=== PATIENT | male | born 1985 | race Hispanic/Latino ===

== ENCOUNTER 2016-07-18 12:53 | Emergency (ER) | payer OTHER ==
[~2016-07-18] VITALS: Ht 177.8 cm; Wt 78.5 kg
--- NOTE | 2016-07-18 13:11 | ED HAND/WRIST INJURY COMPLAINT ---
History of Present Illness General Chief Complaint: Hand or Wrist Injury Stated Complaint: ? INFECTION LFT FINGER Source: patient, family (BROTHER) Exam Limitations: no limitations Vital Signs & Intake/Output Vital Signs & Intake/Output Vital Signs Date Time Temp Pulse Resp B/P Pulse O2 O2 Flow FiO2 Ox Delivery Rate 07/18 1431 98.6 85 18 126/85 98 Room Air 07/18 1315 Room Air Room Air 07/18 1304 99.0 78 20 161/104 97 Room Air Allergies Coded Allergies: benzocaine (From ANBESOL) (Intermediate, HIVES 07/18/16) phenol (From ANBESOL) (Intermediate, HIVES 07/18/16) povidone-iodine (From ANBESOL) (Intermediate, HIVES 07/18/16) Reconcile Medications Amoxicillin 875 MG TABLET 1 TAB PO BID abscess Ibuprofen 800 MG TABLET 1 TAB PO Q8 PRN PAIN Sulfamethoxazole/Trimethoprim (Bactrim Ds Tablet) 800 MG-160 MG TABLET 1 TAB PO BID INFECTION Triage Note: TRIAGE: PT TO ER C/C ?INFECTION PINKY FINGER RT HAND. STATES CUT IT ABOUT A WEEK AGO WITH A METAL BROOM AND IT HAD BEEN HEALING FINE UNTIL ABOUT 3 DAYS AGO. HAS REDNESS/SWELLING TO AREA. PMHX HIV. 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 Triage Nurses Notes Reviewed? yes HPI: Patient is a 31-year-old male with past medical history of HIV and depression presents complaining of infection to his right fifth finger. Patient was cleaning using a metal broom when he accidentally punctured his right 5th finger on the medial side. Injury occurred approximately 1 week ago. Wound was healing well, then 3 days patient noticed redness, pain and swelling to the dorsal surface of the right 5th finger. Symptoms progressively worsening. Pain is moderate to severe, worsens with palpation and range of motion. Pain radiating to the dorsal surface of the hand. Patient reports he had recent blood work regarding his HIV and his viral load was undetectable. Patient is right hand dominant, unsure of last tetanus immunization. Denies fevers, chills. (PIPER BERRIOS,DARRYL) Past History Travel History Traveled to [place] past 21 day No Medical History Any Pertinent Medical History? 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 No (DARRYL MARTINO) Review of Systems Review of Systems Constitutional: Denies: chills, fever. EENTM: Reports: no symptoms. Respiratory: Reports: no symptoms. Cardiovascular: Reports: no symptoms. GI: Denies: nausea, vomiting. Musculoskeletal: Reports: see HPI. Skin: Reports: see HPI. Neurological/Psychological: Denies: numbness, paresthesia. Hematologic/Endocrine: Denies: bruising, bleeding. Immunologic/Allergic: Reports: HIV/AIDS. (DARRYL MARTINO) Physical Exam Physical Exam General Appearance: well developed/nourished, alert, awake, anxious Head: atraumatic, normal appearance Eyes: Bilateral: normal appearance. Ears, Nose, Throat: hearing grossly normal Neck: normal inspection, supple, full range of motion Cardiovascular/Respiratory: no respiratory distress Back: normal inspection, normal range of motion Forearm Right: normal range of motion, normal inspection Wrist Right: normal range of motion, normal inspection Hand Left: normal inspection, normal range of motion Hand Right: 2.5 cm area of erythema and swelling to the dorsal surface of the right 5th finger over the proximal phalanx with 0.5 cm pustule in the the center of the erythema. Full range of motion of all 5 fingers. 0.5 cm scabbed wound to the medial surface of the right 5th finger. No apparent lymphangitis Skin: see extremities exam Lymphatic: no palpable right axillary lymphadenopathy. Diagram Hands Back 1) abscess with surrounding cellulitis (DARRYL MARTINO) Progress Differential Diagnosis: abscess, cellulitis, tenosynovitis, osteomyelitis Plan of Care: Orders Procedure Date/time Status EXTREMETIES CULTURE 07/18 1347 Active CBC WITHOUT DIFFERENTIAL 07/18 1320 Complete Laboratory Tests 07/18/16 1333: CBC w Diff NO MAN DIFF REQ, RBC 4.66 L, MCV 94.7 H, MCH 31.8 H, RDW 14.9 H, MPV 8.1, Gran % 58.7, Lymphocytes % 36.3, Monocytes % 2.7, Eosinophils % 1.7, Basophils % 0.6, Absolute Granulocytes 4.0, Absolute Lymphocytes 2.5, Absolute Monocytes 0.2, Absolute Eosinophils 0.1, Absolute Basophils 0, PUBS MCHC 33.6 Microbiology 07/18 1406 EXTREMITIE: Culture & Sensitivity - RECD 07/18 1406 EXTREMITIE: Gram Stain - RECD See procedure note. Patient nontoxic-appearing, afebrile, white blood cell count within normal limits. Patient reports that most recent viral load was undetectable. Appears stable for discharge on oral antibiotics and close outpatient follow-up. (DARRYL MARTINO) Diagnostic Imaging: Viewed by Me: Radiology Read. Discussed w/RAD: Radiology Read. Radiology Impression: PATIENT: JIMBO KAM PRESENT AGE: 31 PATIENT ACCOUNT NO: [id number] : 84 LOCATION: [facility] ORDERING PHYSICIAN: DARRYL BERRIOS SERVICE DATE: 07/18/16 EXAM TYPE: RAD - XRY-FINGERS, RIGHT EXAMINATION: XR FINGER, RIGHT CLINICAL INFORMATION: Question foreign body. Puncture wound. Infection. COMPARISON: None TECHNIQUE: Three views of the right 50. FINDINGS: The bones and soft tissues are notable for diffuse soft tissue swelling fifth digit. No radiopaque foreign body. No fracture. Alignment is anatomic. Joint spaces are maintained. IMPRESSION: No radiopaque foreign body or focal lesion to indicate osteomyelitis. Soft tissue swelling. DICTATED BY: ANTONI GARCIA MD DATE/TIME DICTATED:07/18/161411 REGISTERED PHARMACIST:CHELSEA DATE/TIME TRANSCRIBED:1411 CONFIDENTIAL, DO NOT COPY WITHOUT APPROPRIATE AUTHORIZATION. < Electronically signed in Other Vendor System> SIGNED BY: ANTONI GARCIA MD 04/24 (DARRYL MARTINO) Departure Departure Disposition: HOME OR SELF CARE Condition: Stable Clinical Impression Primary Impression: Abscess of finger of right hand Referrals: GRIS MARIN,MARY Additional Instructions: Warm soaks to the area for 10-20 minutes each hour. Elevate your hand as much as possible. Follow up with Dr. Hairston(hand specialist) this week for further evaluation, call this afternoon for appointment. If you are not able to follow up with Dr. Hairston then you should return to the ER in 2 days for a recheck. Return to the ER immediately if you develop fevers, redness spreading, increasing swelling or worsening of symptoms. Departure Forms: Customer Survey General Discharge Information Prescriptions: Current Visit Scripts Amoxicillin 1 TAB PO BID #14 TAB Sulfamethoxazole/Trimethoprim (Bactrim Ds Tablet) 1 TAB PO BID #14 TAB Ibuprofen 1 TAB PO Q8 PRN PAIN #20 TAB (DARRYL MARTINO) PA/SALES FACILITATOR Co-Sign Statement Statement: ED Attending supervision documentation- [] I saw and evaluated the patient. I have also reviewed all the pertinent lab results and diagnostic results. I agree with the findings and the plan of care as documented in the PA's/SALES FACILITATOR's documentation. [x] I have reviewed the ED Record and agree with the PA's/SALES FACILITATOR's documentation. [] Additions or exceptions (if any) to the PAs/SALES FACILITATOR's note and plan are summarized below: [] (OLE MARIN,MAXWELL) Procedures Incision and Drainage Progress: Area prepped with chlorhexadine preps. Digital block using 1% lidocaine 6 ml injected. 1 cm superficial incision made using an 11 blade scalpel with approximately 3-4 ml of purulent drainage expressed. blunt probing using forceps. Irrigated with 200 cc sterile water. Well tolerated by patient. (DARRYL MARTINO)
[2016-07-18 13:40] LABS: ABSOLUTE BASOPHIL COUNT 0 /CUMM (0.0-0.2); ABSOLUTE EOSINOPHIL COUNT 0.1 /CUMM (0.0-0.7); ABSOLUTE LYMPH COUNT 2.5 /CUMM (1.2-3.4); ABSOLUTE MONOCYTE COUNT 0.2 /CUMM (0.10-0.60); BASOPHIL % 0.6 % (0.0-2.0); EOSINOPHIL % 1.7 % (0-5); GRANULOCYTE % 58.7 % (42.2-75.2); HEMATOCRIT 44.2 % (42-52); MEAN CORPUSCULAR HGB 31.8 PG (27.0-31.0); MEAN CORPUSCULAR HGB CONC 33.6 G/DL (33.0-37.0); MEAN CORPUSCULAR VOLUME 94.7 FL (80.0-94.0); MEAN PLATELET VOLUME 8.1 FL (7.4-10.4); PLATELET COUNT 120 /CUMM (130-400); RBC DISTRIBUTION WIDTH 14.9 % (11.5-14.5); RED BLOOD CELL CT 4.66 /CUMM (4.70-6.10); WHITE BLOOD CELL COUNT 6.8 /CUMM (4.8-10.8)
--- NOTE | 2016-07-18 14:17 | RADIOLOGY REPORT ---
EXAMINATION: XR FINGER, RIGHT CLINICAL INFORMATION: Question foreign body. Puncture wound. Infection. COMPARISON: None TECHNIQUE: Three views of the right 50. FINDINGS: The bones and soft tissues are notable for diffuse soft tissue swelling fifth digit. No radiopaque foreign body. No fracture. Alignment is anatomic. Joint spaces are maintained. IMPRESSION: No radiopaque foreign body or focal lesion to indicate osteomyelitis. Soft tissue swelling.
[2016-07-18] MEDS ORDERED: BACTRIM DS TAB1 EACH PO (14:20)
[2016-07-18] MEDS ORDERED: AMOXICILLIN875 M1 PO (14:20)
[2016-07-18] MEDS ORDERED: IBUPROFEN800 M1 PO (14:20)
[2016-07-18 14:31] VITALS: BP 126/85
== END 2016-07-18 14:32 ==
LOC: ERH 12:53
PROVIDERS: Physician Assistant
DX: L02.511 Cutaneous abscess of right hand (principal)
CPT/HCPCS: 87184; 73140-RT; 87070; 87147; 90471; 90714; 96374; 96375; J1885